=== PATIENT | female | born 1980 | race Caucasian/White ===

== ENCOUNTER 2017-05-21 14:51 | Emergency (ER) | payer BC ==
[~2017-05-21] VITALS: Ht 149.9 cm; Wt 60.1 kg
[~2017-05-21 14:51] MED LIST: IBUP80TA PO; PERCOCET PO; VITAPRTA PO
[2017-05-21 15:27] LABS: BASO % 0.3 % (0.0-1.0); EOS # 0.2 K/mm3 (0.0-0.50); EOS % 2.4 % (0.0-3.0); LARGE UNSTAINED CELL # 0.1 K/mm3 (0.0-0.4); LARGE UNSTAINED CELL % 1.3 % (0.0-4.0); LYMPH # 1.9 K/mm3 (1.5-4.5); MEAN CORPUSCULAR HGB CONC 34.3 g/dl (32.0-36.5); MEAN CORPUSCULAR VOLUME 87.3 fl (80.0-96.0); MONO # 0.7 K/mm3 (0.0-0.8); MONO % 6.7 % (0.0-5.0); NEUTROPHILS % 71.3 % (36.0-66.0); PLATELET COUNT, AUTOMATED 345 k/mm3 (150-450); RED CELL DISTRIBUTION WIDTH 12.9 % (11.5-14.5); WHITE BLOOD COUNT 9.8 K/mm3 (4.0-10.0)
[2017-05-21 16:04] LABS: ALBUMIN/GLOBULIN RATIO 1.05 (1.00-1.93); ALKALINE PHOSPHATASE 59 U/L (45-117); ALT/SGPT 17 U/L (12-78); ANION GAP 6 MEQ/L (8-16); AST/SGOT 13 U/L (15-37); BILIRUBIN,DIRECT < 0.1 MG/DL (0.0-0.2); BILIRUBIN,TOTAL 0.3 MG/DL (0.2-1.0); BLOOD UREA NITROGEN 10 MG/DL (7-18); CALCIUM LEVEL 8.9 MG/DL (8.5-10.1); CARBON DIOXIDE LEVEL 29 MEQ/L (21-32); CHLORIDE LEVEL 106 MEQ/L (98-107); CREATININE FOR GFR 0.75 MG/DL (0.55-1.02); FREE T4 0.92 NG/DL (0.76-1.46); GLOMERULAR FILTRATION RATE > 60.0 (>60); GLUCOSE, FASTING 115 MG/DL (70-105); POTASSIUM SERUM 3.3 MEQ/L (3.5-5.1); SODIUM LEVEL 141 MEQ/L (136-145); TOTAL PROTEIN 7.8 GM/DL (6.4-8.2)
--- NOTE | 2017-05-21 16:30 | REP ---
Chest pain. PRIORS: None. FINDINGS: The technique utilized in obtaining the radiograph has magnified the cardiac silhouette and accentuated the interstitial markings. The superior mediastinal structures are midline. The cardiac silhouette is unremarkable in size, shape, and position. The diaphragmatic surfaces of the lungs are regular, and the costophrenic angles are clear. The pulmonary byrne are clear. The imaged osseous structures are intact. IMPRESSION: There is no acute cardiopulmonary disease. Signed by Samuel Navarro DO 05/21/2017 04:53 P
[2017-05-21] MEDS ORDERED: POTASSIUM CHLORIDE 10 MEQ SR TABLET PO ONE (17:45)
[2017-05-21] MEDS ORDERED: ASPIRIN 325 MG TAB PO ONE (18:00)
[2017-05-21] MEDS ORDERED: ISOVUE-370 76% 100ML VIAL (Q9967) As Ordered ONE (19:11)
--- NOTE | 2017-05-21 20:00 | REPUSA ---
CT of the chest with contrast Clinical history: chest pain. Technique: Multiple axial CT images were obtained from the thoracic inlet through the upper abdomen a fter a bolus administration of nonionic intravenous contrast. Coronal and sagittal reconstructions we re also obtained. No comparison is available. The pulmonary arteries are well-opacified with contrast, with no intraluminal filling defects to sugg est embolism. The thoracic aorta is unremarkable. Thyroid gland is within normal limits. There is no thoracic lymphadenopathy. There are no pericardial or pleural effusions. The lungs are clear. Limited imaging of the upper abdomen is unremarkable. There are no suspicious osseous lesions. Impression: No evidence of pulmonary embolism. No acute intrapulmonary disease.
[2017-05-21 23:09] VITALS: BP 105/52
--- NOTE | 2017-05-22 05:59 | ECGEPIP ---
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
--- NOTE | 2017-05-22 07:42 | ECGEPIP ---
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
== END 2017-05-21 23:12 | disposition home or self-care (01) ==
LOC: M ED 16:49
DX: R07.9 Chest pain, unspecified (principal); Z82.49 Family history of ischemic heart disease and other diseases of the circulatory system
CPT/HCPCS: 36415; 71010; 71275; 80048; 80076; 82550; 82553; 84439; 84443; 85025; 93005; 93041; 94760; 99285; Q9967

== ENCOUNTER → 2017-07-28 | Outpatient (CLI) | payer BC ==
[2017-07-28 17:57] LABS: BASO % 0.4 % (0.0-1.0); EOS # 0.2 K/mm3 (0.0-0.50); EOS % 1.7 % (0.0-3.0); LARGE UNSTAINED CELL # 0.1 K/mm3 (0.0-0.4); LARGE UNSTAINED CELL % 1.2 % (0.0-4.0); LYMPH # 2.3 K/mm3 (1.5-4.5); LYMPH % 22.2 % (24.0-44.0); MEAN CORPUSCULAR HEMOGLOBIN 30.4 pg (27.0-33.0); MEAN CORPUSCULAR HGB CONC 34.2 g/dl (32.0-36.5); MEAN CORPUSCULAR VOLUME 88.9 fl (80.0-96.0); MONO # 0.6 K/mm3 (0.0-0.8); MONO % 6.2 % (0.0-5.0); NEUTROPHILS # 6.8 K/mm3 (1.8-7.7); NEUTROPHILS % 68.3 % (36.0-66.0); PLATELET COUNT, AUTOMATED 325 k/mm3 (150-450); RED CELL DISTRIBUTION WIDTH 12.6 % (11.5-14.5); WHITE BLOOD COUNT 9.9 K/mm3 (4.0-10.0)
[2017-07-30 12:53] LABS: HBsAg Prenatal NEGATIVE (NEGATIVE)
== END ==
LOC: M SMT 13:16
PROVIDERS: ATTEND Advanced Practice Midwife
DX: Z34.81 Encounter for supervision of other normal pregnancy, first trimester (principal); Z36 Encounter for antenatal screening of mother; Z3A.00 Weeks of gestation of pregnancy not specified

== ENCOUNTER → 2017-09-13 | Outpatient (REF) | payer BC | LOC: M SFHCCLAY 15:32 | PROVIDERS: ATTEND Family Medicine | DX: D22.5 Melanocytic nevi of trunk (principal) ==

== ENCOUNTER → 2017-12-13 | Outpatient (CLI) | payer OTHER ==
[2017-12-13 13:58] LABS: BASO % 0.3 % (0.0-1.0); EOS # 0.3 10^3/uL (0.0-0.50); EOS % 3.4 % (0.0-3.0); HEMATOCRIT 31.3 % (36.0-47.0); HEMOGLOBIN 10.3 g/dl (12.0-16.0); IMMATURE GRANULOCYTE # 0.1 10^3/uL (0-0); IMMATURE GRANULOCYTE % 0.8 % (0-0); LYMPH % 20.5 % (24.0-44.0); MEAN CORPUSCULAR HEMOGLOBIN 29.5 pg (27.0-33.0); MEAN CORPUSCULAR HGB CONC 32.9 g/dl (32.0-36.5); MEAN CORPUSCULAR VOLUME 89.7 fl (80.0-96.0); MONO # 0.8 10^3/uL (0.0-0.8); NEUTROPHILS # 6.4 10^3/uL (1.8-7.7); PLATELET COUNT, AUTOMATED 309 10^3/uL (150-450); RED BLOOD COUNT 3.49 10^6/uL (4.00-5.40); WHITE BLOOD COUNT 9.5 10^3/uL (4.0-10.0)
[2017-12-13 14:18] LABS: GLUCOSE CHALLENGE TEST 1 HOUR 95 MG/DL (LESS THAN 140)
== END ==
LOC: M SMT 10:33
DX: Z34.83 Encounter for supervision of other normal pregnancy, third trimester (principal)
CPT/HCPCS: 82950

== ENCOUNTER → 2018-02-01 | Outpatient (REF) | payer BC, OTHER ==
[2018-02-01 21:23] LABS: GC DNA AMPLIFICATION NEGATIVE (NEGATIVE)
[2018-02-02 07:05] LABS: CHLAMYDIA DNA AMPLIFICATION NEGATIVE (NEGATIVE)
== END ==
LOC: M LAB REF 16:57
DX: Z34.83 Encounter for supervision of other normal pregnancy, third trimester (principal)
CPT/HCPCS: 87086

== ENCOUNTER → 2018-02-21 | Outpatient (REF) | payer OTHER | LOC: M LAB REF 17:17 | DX: Z34.83 Encounter for supervision of other normal pregnancy, third trimester (principal); Z36.85 Encounter for antenatal screening for Streptococcus B | CPT/HCPCS: 87081 ==

== ENCOUNTER → 2018-02-22 | Outpatient (REF) | payer OTHER | LOC: M LAB REF 18:03 | DX: D48.5 Neoplasm of uncertain behavior of skin (principal) ==

== ENCOUNTER 2018-03-16 20:00 | Inpatient (IN) | payer OTHER ==
[2018-03-16 21:02] LABS: HEMATOCRIT 29.6 % (36.0-47.0); HEMOGLOBIN 9.8 g/dl (12.0-15.5); MEAN CORPUSCULAR HEMOGLOBIN 28.2 pg (27.0-33.0); MEAN CORPUSCULAR HGB CONC 33.1 g/dl (32.0-36.5); MEAN CORPUSCULAR VOLUME 85.3 fl (80.0-96.0); PLATELET COUNT, AUTOMATED 291 10^3/uL (150-450); RED BLOOD COUNT 3.47 10^6/uL (4.00-5.40); RED CELL DISTRIBUTION WIDTH 13.7 % (11.5-14.5); WHITE BLOOD COUNT 12.8 10^3/uL (4.0-10.0)
[2018-03-16 21:33] LABS: AMPHETAMINES URINE REFLEX NEGATIVE (NEGATIVE); BARBITURATES URINE REFLEX NEGATIVE (NEGATIVE); BENZODIAZEPINES URINE REFLEX NEGATIVE (NEGATIVE); CANNABINOIDS URINE REFLEX NEGATIVE (NEGATIVE); COCAINE METABOLITE URINE REFLE NEGATIVE (NEGATIVE); METHADONE URINE REFLEX NEGATIVE (NEGATIVE); OPIATES URINE REFLEX NEGATIVE (NEGATIVE); PHENCYCLIDINE URINE REFLEX NEGATIVE (NEGATIVE)
[2018-03-17] MEDS: LR 1,000 ML IV (01:13)
[2018-03-17] MEDS ORDERED: OXYTOCIN DRIP 30 UNITS in APPROPRIATE DILUENT 1 EA IV (01:15)
[2018-03-17] MEDS ORDERED: FENTANYL 2MCG/ML ROPIVACAINE 0.2% IN 0.9% NACL 200ML IVBAG As Ordered (02:39)
[2018-03-17] MEDS ORDERED: EPIDURAL COMMENT XX (03:15)
[2018-03-17] MEDS ORDERED: ONDANSETRON 4MG/2ML VIAL (J2405) IV ×2 (03:15→07:15)
[2018-03-17] MEDS ORDERED: LACTATED RINGER'S 1000 ML IV (03:15)
[2018-03-17] MEDS ORDERED: EPIDURAL/PCA KEYS XX (03:15)
[2018-03-17] MEDS ORDERED: NALOXONE INJ 0.4 MG/1 ML VIAL (J2310) IV (03:15)
[2018-03-17] MEDS ORDERED: REFRIGERATOR IV KEYS XX (03:15)
[2018-03-17] MEDS ORDERED: FENTANYL/ROPIVACAINE/NACL BAG 200 ML EPIDURAL (03:15)
[2018-03-17] MEDS ORDERED: ePHEDrine SULFATE 25 MG/5 ML(5MG/ML) SYRINGE IV (03:15)
[2018-03-17] MEDS ORDERED: diphenhydrAMINE INJ 50MG/ML VIAL (J1200) IV (03:15)
[2018-03-17] MEDS ORDERED: DOCUSATE SODIUM 100 MG CAP PO (07:15)
[2018-03-17] MEDS ORDERED: METHYLERGONOVINE MALEATE 0.2 MG TAB PO (07:15)
[2018-03-17] MEDS ORDERED: DIBUCAINE 1% OINTMENT 30GM TOP (07:15)
[2018-03-17] MEDS: OXYTOCIN DRIP 30 UNITS in APPROPRIATE DILUENT 1 EA IV (07:15)
[2018-03-17] MEDS: PRENATAL VITAMINS CHEWABLE TABLET PO (10:10)
[2018-03-17] MEDS: IBUPROFEN 800 MG TAB PO ×2 (10:11→19:16)
[2018-03-17] MEDS: MEASLES,MUMPS,RUBELLA VACCINE INJ (MMR-II) (90707) SC (10:53)
[2018-03-17] MEDS: RHOGAM 300 MCG (1500 IU) INJ (J2790) IM (10:53)
[2018-03-17] MEDS: ACETAMINOPHEN 500 MG TAB PO (14:16)
[2018-03-18] MEDS: IBUPROFEN 800 MG TAB PO (04:40)
[2018-03-18] MEDS: PRENATAL VITAMINS CHEWABLE TABLET PO (08:23)
[2018-03-18] MEDS: ACETAMINOPHEN 500 MG TAB PO (08:24)
== END 2018-03-18 14:40 | disposition home or self-care (01) | DRG 560 ==
LOC: M LDO 20:00 → M LDI 20:42 → M OBS 03-17 09:38
PROVIDERS: Specialist
PROC: 10E0XZZ Delivery of Products of Conception, External Approach (ICD-10-PCS; principal; 2018-03-17)
DX: O69.1XX0 Labor and delivery complicated by cord around neck, with compression, not applicable or unspecified (principal); Z37.0 Single live birth; Z3A.39 39 weeks gestation of pregnancy

== ENCOUNTER 2018-06-06 05:39 | Day surgery (SDC) | payer OTHER, SELFPAY ==
[2018-06-06] MEDS ORDERED: LIDOCAINE 1% MDV 20ML VIAL SQ ×3 (06:00)
[2018-06-06 06:07] LABS: HEMATOCRIT 34.9 % (36.0-47.0); HEMOGLOBIN 11.2 g/dl (12.0-15.5); MEAN CORPUSCULAR HEMOGLOBIN 28.4 pg (27.0-33.0); MEAN CORPUSCULAR HGB CONC 32.1 g/dl (32.0-36.5); MEAN CORPUSCULAR VOLUME 88.6 fl (80.0-96.0); PLATELET COUNT, AUTOMATED 287 10^3/uL (150-450); RED BLOOD COUNT 3.94 10^6/uL (4.00-5.40); RED CELL DISTRIBUTION WIDTH 14.7 % (11.5-14.5); WHITE BLOOD COUNT 7.2 10^3/uL (4.0-10.0)
[2018-06-06] MEDS ORDERED: BUPIVACAINE HCL 0.25% 30 ML VIAL As Ordered ×3 (06:40)
[2018-06-06] MEDS: LR 1,000 ML IV ×3 (07:11)
[2018-06-06 07:15] LABS: CONTROL LINE UCG INT CTR LINE PRESENT; URINE PREG TEST NEGATIVE (NEGATIVE)
[2018-06-06] MEDS ORDERED: METOCLOPRAMIDE INJ 10MG/2ML VIAL (J2765) As Ordered ×3 (07:50)
[2018-06-06] MEDS ORDERED: fentaNYL 250 MCG/5 ML INJECTION (J3010) As Ordered ×3 (07:50)
[2018-06-06] MEDS ORDERED: LIDOCAINE 2% INJ 100 MG/5 ML SDV (FOR ANES.) As Ordered ×3 (07:50)
[2018-06-06] MEDS ORDERED: dexameTHASONE 4 MG/ML 1ML VIAL (J1100) As Ordered ×3 (07:50)
[2018-06-06] MEDS ORDERED: ROCURONIUM BROMIDE 50 MG/5 ML VIAL As Ordered ×3 (07:50)
[2018-06-06] MEDS ORDERED: NEOSTIGMINE 10 MG/10 ML VIAL (J2710) As Ordered ×3 (07:50)
[2018-06-06] MEDS ORDERED: PROPOFOL 200 MG/20 ML VIAL As Ordered ×3 (07:50)
[2018-06-06] MEDS ORDERED: GLYCOPYRROLATE INJ 0.2 MG/ML 2 ML VIAL As Ordered ×6 (07:50)
[2018-06-06] MEDS ORDERED: MIDAZOLAM INJ 2 MG/2 ML VIAL (J2250) As Ordered ×3 (07:50)
[2018-06-06] MEDS ORDERED: ONDANSETRON 4MG/2ML VIAL (J2405) As Ordered ×6 (07:50→10:39)
[2018-06-06] MEDS ORDERED: KETOROLAC 60 MG/2 ML VIAL (J1885) As Ordered ×3 (07:51)
[2018-06-06] MEDS: fentaNYL 100 MCG/2 ML INJECTION (J3010) IV ×12 (08:30→08:45)
[2018-06-06] MEDS ORDERED: fentaNYL 100 MCG/2 ML INJECTION (J3010) As Ordered ×3 (08:31)
[2018-06-06] MEDS ORDERED: PERCOCET 5MG/325MG TAB PO ×6 (08:45)
[2018-06-06] MEDS ORDERED: LR 1,000 ML IV ×6 (08:45)
[2018-06-06] MEDS ORDERED: MORPHINE 10 MG/ML 1ML VIAL (J2270) As Ordered ×3 (08:49)
[2018-06-06] MEDS: MORPHINE 10 MG/ML 1ML VIAL (J2270) IV ×15 (08:50→09:20)
[2018-06-06] MEDS ORDERED: MEPERIDINE INJ 25 MG/ML VIAL (J2175) As Ordered ×3 (09:03)
[2018-06-06] MEDS: MEPERIDINE INJ 25 MG/ML VIAL (J2175) IV ×6 (09:05→09:10)
[2018-06-06] MEDS: ONDANSETRON 4MG/2ML VIAL (J2405) IV ×3 (10:44)
== END 2018-06-06 12:23 | disposition home or self-care (01) ==
LOC: M SDC 05:39
DX: Z30.2 Encounter for sterilization (principal); Z79.899 Other long term (current) drug therapy; D64.9 Anemia, unspecified
CPT/HCPCS: 58671

== ENCOUNTER → 2018-06-08 | Outpatient (REF) | payer OTHER | LOC: M LAB REF 11:33 | DX: R30.0 Dysuria (principal) | CPT/HCPCS: 87086 ==

== ENCOUNTER → 2018-11-15 | Outpatient (REF) | payer OTHER ==
[~2018-11-15] MED LIST changes: +IBUP-1114 PO; +MAPA500T17 PO; +OXYC1TAB23 PO; +PRENTAB9 PO
[2018-11-15 17:23] LABS: BASO % 0.3 % (0.0-1.0); EOS # 0.4 10^3/uL (0.0-0.50); HEMATOCRIT 37.8 % (36.0-47.0); HEMOGLOBIN 12.2 g/dl (12.0-15.5); LYMPH # 2.8 10^3/uL (1.5-4.5); MEAN CORPUSCULAR HGB CONC 32.3 g/dl (32.0-36.5); MEAN CORPUSCULAR VOLUME 89.8 fl (80.0-96.0); MONO # 0.9 10^3/uL (0.0-0.8); MONO % 9.8 % (0.0-5.0); NEUTROPHILS # 4.8 10^3/uL (1.8-7.7); NEUTROPHILS % 54.1 % (36.0-66.0); PLATELET COUNT, AUTOMATED 365 10^3/uL (150-450); RED BLOOD COUNT 4.21 10^6/uL (4.00-5.40); WHITE BLOOD COUNT 8.9 10^3/uL (4.0-10.0)
[2018-11-15 17:53] LABS: FOLATE 9.5 NG/ML
== END ==
LOC: M SFHCCLAY 13:24
PROVIDERS: ATTEND Family Medicine
DX: G25.81 Restless legs syndrome (principal); R20.0 Anesthesia of skin

== ENCOUNTER → 2019-02-22 | Outpatient (CLI) | payer OTHER ==
[~2019-02-22] MED LIST changes: -MAPA500T17 PO; +MAPA500T2 PO
--- NOTE | 2019-02-22 14:33 | REP ---
Clinical: Pelvic pain. Technique: Transabdominal pelvic ultrasound followed by transvaginal examination for better evaluation of the endometrium and adnexa with color Doppler evaluation of the ovaries. Comparison: 04/13/2013 Findings: Heterogeneous anteverted uterus measures 9.0 x 4.6 x 5.3 cm. Posterior intramural lower uterine fibroid measures 2.7 x 2.4 x 2.5 cm (increased from 1.7 cm maximal diameter). Endometrial complex measures 7.6 mm thickness. Subcentimeter Nabothian cysts are identified. No further uterine or endometrial abnormality noted. Bilateral ovaries are normal in vascularity without torsion. Right ovary measures 3.5 x 1.8 x 2.4 cm (RI 0.55) and appears normal. Left ovary measures 4.1 x 2.3 x 3.0 cm (RI 0.46) and includes 2.3 cm involuting physiologic cyst and sub centimeter echogenic lesion which may represent complex hemorrhagic cyst or dermoid. Bladder is normal in appearance and measures 8.7 x 5.7 x 1.5 cm. Impression: 1. Heterogeneous uterus with 2.7 cm lower uterine segment fibroid. 2. Changes related to the left ovary likely physiologic. Consider reevaluation in 4-6 weeks to evaluate for resolution. Electronically Signed by Maik Herzog MD 02/22/2019 02:25 P
== END ==
LOC: M RAD 08:56
PROVIDERS: ATTEND Specialist
DX: D25.9 Leiomyoma of uterus, unspecified (principal); N88.8 Other specified noninflammatory disorders of cervix uteri

== ENCOUNTER → 2019-03-30 | Outpatient (CLI) | payer OTHER ==
[2019-03-30 13:50] LABS: BASO % 0.6 % (0.0-1.0); EOS # 0.2 10^3/uL (0.0-0.50); EOS % 3.5 % (0.0-3.0); HEMATOCRIT 39.7 % (36.0-47.0); HEMOGLOBIN 12.7 g/dl (12.0-15.5); LYMPH % 29.9 % (24.0-44.0); MEAN CORPUSCULAR HEMOGLOBIN 28.5 pg (27.0-33.0); MEAN CORPUSCULAR VOLUME 89.2 fl (80.0-96.0); MONO # 0.7 10^3/uL (0.0-0.8); MONO % 10.6 % (0.0-5.0); NEUTROPHILS # 3.8 10^3/uL (1.8-7.7); PLATELET COUNT, AUTOMATED 326 10^3/uL (150-450); RED BLOOD COUNT 4.45 10^6/uL (4.00-5.40); WHITE BLOOD COUNT 6.8 10^3/uL (4.0-10.0)
[2019-03-30 13:58] LABS: ALBUMIN 4.1 GM/DL (3.2-5.2); ALT/SGPT 12 U/L (12-78); BILIRUBIN,TOTAL 0.5 MG/DL (0.2-1.0); BLOOD UREA NITROGEN 14 MG/DL (7-18); CALCIUM LEVEL 8.8 MG/DL (8.5-10.1); CARBON DIOXIDE LEVEL 28 MEQ/L (21-32); CHLORIDE LEVEL 107 MEQ/L (98-107); CHOLESTEROL LEVEL 192 MG/DL (<200); CHOLESTEROL RISK RATIO 3.254 (<5); CREATININE FOR GFR 0.62 MG/DL (0.55-1.30); GLOMERULAR FILTRATION RATE > 60.0 (>60); GLUCOSE, FASTING 85 MG/DL (70-100); HDL CHOLESTEROL 59 MG/DL (>40); LDL CHOLESTEROL 121 MG/DL (<100); NON-HDL-C 133 MG/DL; POTASSIUM SERUM 4.7 MEQ/L (3.5-5.1); SODIUM LEVEL 137 MEQ/L (136-145); TOTAL PROTEIN 7.4 GM/DL (6.4-8.2); TRIGLYCERIDES LEVEL 58 MG/DL (<150)
== END ==
LOC: M SMT 08:26
PROVIDERS: ATTEND Family Medicine
DX: Z13.1 Encounter for screening for diabetes mellitus (principal); Z13.220 Encounter for screening for lipoid disorders; R53.83 Other fatigue; F41.9 Anxiety disorder, unspecified; R00.2 Palpitations; Z82.49 Family history of ischemic heart disease and other diseases of the circulatory system; Z83.3 Family history of diabetes mellitus

== ENCOUNTER → 2021-05-13 | Outpatient (REF) | payer OTHER ==
[2021-05-13 17:53] LABS: ESTRADIOL 44.8 PG/ML; FOLLICLE STIMULATING HORMONE 7.2 mIU/mL; LUTEINIZING HORMONE 6.5 mIU/mL; THYROID STIMULATING HORMONE 2.25 uIU/ML (0.358-3.740)
[2021-05-13 18:06] LABS: HEMATOCRIT 38.6 % (36.0-47.0); HEMOGLOBIN 12.2 g/dl (12.0-15.5); MEAN CORPUSCULAR HEMOGLOBIN 28.9 pg (27.0-33.0); MEAN CORPUSCULAR HGB CONC 31.6 g/dl (32.0-36.5); MEAN CORPUSCULAR VOLUME 91.5 fl (80.0-96.0); PLATELET COUNT, AUTOMATED 352 10^3/uL (150-450); RED BLOOD COUNT 4.22 10^6/uL (4.00-5.40); WHITE BLOOD COUNT 7.5 10^3/uL (4.0-10.0)
== END ==
LOC: M PLALAB 15:03
PROVIDERS: ATTEND Advanced Practice Midwife
DX: N92.0 Excessive and frequent menstruation with regular cycle (principal)

== ENCOUNTER → 2021-05-13 | Outpatient (REF) | payer OTHER | LOC: M SFHCWAGY 17:26 | PROVIDERS: ATTEND Advanced Practice Midwife | DX: Z12.4 Encounter for screening for malignant neoplasm of cervix (principal) ==

== ENCOUNTER → 2021-05-20 | Outpatient (REF) | payer OTHER | LOC: M SFHCWAGY 13:27 | PROVIDERS: ATTEND Advanced Practice Midwife | DX: N92.4 Excessive bleeding in the premenopausal period (principal) ==

== ENCOUNTER → 2022-01-29 | Outpatient (REF) | payer OTHER ==
[2022-01-29 12:55] LABS: CHOLESTEROL RISK RATIO 2.927 (<5)
[2022-01-29 13:17] LABS: HEMOGLOBIN A1c 5.2 %
[2022-01-30 07:08] LABS: RUBELLA IgG FOR TORCH EVAL <0.90 index (Immune >0.99); RUBEOLA IgG ANTIBODY 28.2 AU/mL (Immune >16.4)
== END ==
LOC: M SFHCCLAY 08:41
PROVIDERS: ATTEND Family Medicine
DX: Z13.220 Encounter for screening for lipoid disorders (principal); Z82.49 Family history of ischemic heart disease and other diseases of the circulatory system; Z13.1 Encounter for screening for diabetes mellitus; Z83.3 Family history of diabetes mellitus; Z02.1 Encounter for pre-employment examination; Z11.1 Encounter for screening for respiratory tuberculosis

== ENCOUNTER → 2022-08-24 | Outpatient (CLI) | payer OTHER | LOC: M WHC 14:32 | PROVIDERS: ATTEND Specialist | DX: N92.0 Excessive and frequent menstruation with regular cycle (principal) ==

== ENCOUNTER → 2022-10-26 | Outpatient (CLI) | payer OTHER ==
[~2022-10-26] MED LIST changes: +HYDR-643 PO; +VITMTA PO
== END ==
LOC: M LABSMTC 10:45
PROVIDERS: ATTEND Anesthesiology
DX: Z01.812 Encounter for preprocedural laboratory examination (principal); Z11.52 Encounter for screening for COVID-19

== ENCOUNTER 2022-10-30 09:37 | Day surgery (SDC) | payer OTHER ==
[~2022-10-30] VITALS: Ht 149.9 cm; Wt 54.4 kg
[~2022-10-30 09:37] MED LIST changes: +BUPIVACAINE HCL 0.25% 10ML VIAL As Ordered ONE; +LR 1,000 ML IV SCH; +ceFAZolin SOD 2 GM in IV 1 EA IV ONE
[2022-10-30] MEDS ORDERED: LR 1,000 ML IV SCH ×3 (10:15→14:40)
[2022-10-30 10:21] LABS: HEMATOCRIT 33.6 % (36.0-47.0); HEMOGLOBIN 11.1 g/dl (12.0-15.5); MEAN CORPUSCULAR HEMOGLOBIN 29.6 pg (27.0-33.0); MEAN CORPUSCULAR VOLUME 89.6 fl (80.0-96.0); PLATELET COUNT, AUTOMATED 306 10^3/uL (150-450); RED BLOOD COUNT 3.75 10^6/uL (4.00-5.40); WHITE BLOOD COUNT 7.3 10^3/uL (4.0-10.0)
[2022-10-30] MEDS ORDERED: SCOPOLAMINE 1MG TRANSDERMAL PATCH TOP ONE (10:40)
[2022-10-30] MEDS ORDERED: ONDANSETRON 4MG 2ML VIAL As Ordered ONE (10:59)
[2022-10-30] MEDS ORDERED: MIDAZOLAM INJ 2MG/2ML VIAL (J2250 PER 1MG) As Ordered ONE (10:59)
[2022-10-30] MEDS ORDERED: LIDOCAINE 2% 100MG/5ML SDV (FOR ANES.) As Ordered ONE (10:59)
[2022-10-30] MEDS ORDERED: ROCURONIUM BROMIDE 50 MG/5 ML VIAL As Ordered ONE ×2 (10:59→12:54)
[2022-10-30] MEDS ORDERED: fentaNYL 250 MCG/5 ML INJECTION As Ordered ONE (10:59)
[2022-10-30] MEDS ORDERED: propofoL 200 MG/20 ML VIAL As Ordered ONE (10:59)
[2022-10-30] MEDS ORDERED: ePHEDrine SULFATE 25 MG/5 ML(5MG/ML) SYRINGE As Ordered ONE (12:36)
[2022-10-30] MEDS ORDERED: ACETAMINOPHEN 1000MG 100ML IV BAG As Ordered ONE (12:50)
[2022-10-30] MEDS ORDERED: GLYCOPYRROLATE INJ 0.2 MG/ML 2 ML VIAL As Ordered ONE (13:12)
[2022-10-30] MEDS ORDERED: ESMOLOL INJ 100MG/10ML VIAL As Ordered ONE (13:18)
[2022-10-30] MEDS ORDERED: SUGAMMADEX SODIUM 500 MG/5 ML VIAL (BRIDION) As Ordered ONE (13:21)
[2022-10-30] MEDS ORDERED: fentaNYL 100 MCG/2 ML INJECTION IV PRN (13:45)
[2022-10-30] MEDS ORDERED: ONDANSETRON 4MG 2ML VIAL IV PRN (13:45)
[2022-10-30] MEDS ORDERED: IBUP-1022 PO (14:03)
[2022-10-30] MEDS ORDERED: OXYC1TAB23 PO (14:04)
[2022-10-30] MEDS: HYDROMORPHONE HCL 0.5 MG/ 0.5 ML SYRINGE (J1170 PER 1) IV PRN ×4 (14:20→14:48)
[2022-10-30] MEDS: oxyCODONE 5MG TAB PO PRN ×2 (14:33→15:00)
[2022-10-30] MEDS ORDERED: PERCOCET 5MG/325MG TAB PO PRN (14:40)
[2022-10-30 15:45] VITALS: BP 113/59
== END 2022-10-30 16:00 | disposition home or self-care (01) ==
LOC: M SDC 09:37
PROVIDERS: ATTEND Specialist
DX: N92.6 Irregular menstruation, unspecified (principal); D25.9 Leiomyoma of uterus, unspecified; L40.9 Psoriasis, unspecified; F41.9 Anxiety disorder, unspecified; Z79.899 Other long term (current) drug therapy
CPT/HCPCS: 36415; 58571; 85027; 86850; 86900; 86901; 88307; J0131; J0690; J1100; J1170; J2250; J2405; J3010; S2900

== ENCOUNTER → 2022-11-11 | Outpatient (REF) | payer OTHER ==
[~2022-11-11] MED LIST changes: -BUPIVACAINE HCL 0.25% 10ML VIAL As Ordered ONE; +IBUP-1022 PO; -LR 1,000 ML IV SCH; -ceFAZolin SOD 2 GM in IV 1 EA IV ONE
[2022-11-11 19:35] LABS: APPEARANCE, URINE MANUAL CLEAR (CLEAR)
[2022-11-11 19:36] LABS: BILIRUBIN, URINE MANUAL NEGATIVE (NEGATIVE); BLOOD URINE MANUAL POSITIVE (NEGATIVE); COLOR, URINE MANUAL COLORLESS (YELLOW); GLUCOSE, URINE (UA) MANUAL NEGATIVE (NEGATIVE); KETONE, URINE MANUAL NEGATIVE (NEGATIVE); LEUKOCYTE ESTERASE, URINE MAN POSITIVE (NEGATIVE); NITRITE, URINE MANUAL NEGATIVE (NEGATIVE); PROTEIN, URINE MANUAL NEGATIVE (NEGATIVE); UROBILINOGEN, URINE MANUAL NORMAL (NORMAL)
[2022-11-11 19:46] LABS: BACTERIA, URINE SMALL AMOUNT; HYALINE CAST, URINE NONE SEEN /lpf (0-1); RBC, URINE NONE SEEN /hpf (0-3); SQUAMOUS EPITHELIAL CELL URINE SMALL AMOUNT /hpf (SMALL AMT); WBC, URINE 0-1 /hpf (0-3)
== END ==
LOC: M LAB REF 17:14
PROVIDERS: ATTEND Physician Assistant
DX: N39.0 Urinary tract infection, site not specified (principal)

== ENCOUNTER → 2024-10-12 | Outpatient (REF) | payer OTHER ==
[2024-10-12 17:20] LABS: HEMATOCRIT 40.7 % (36.0-47.0); HEMOGLOBIN 13.3 g/dl (12.0-15.5); MEAN CORPUSCULAR HEMOGLOBIN 29.7 pg (27.0-33.0); MEAN CORPUSCULAR HGB CONC 32.7 g/dl (32.0-36.5); MEAN CORPUSCULAR VOLUME 90.8 fl (80.0-96.0); PLATELET COUNT, AUTOMATED 329 10^3/uL (150-450); RED BLOOD COUNT 4.48 10^6/uL (4.00-5.40); WHITE BLOOD COUNT 7.4 10^3/uL (4.0-10.0)
[2024-10-12 17:22] LABS: ALBUMIN 4.1 G/DL (3.2-5.2); ALKALINE PHOSPHATASE 40 U/L (35-104); ALT/SGPT 12 U/L (7.0-40); AST/SGOT 9 U/L (<34); BILIRUBIN,TOTAL 0.7 MG/DL (0.3-1.2); BLOOD UREA NITROGEN 10 MG/DL (9-23); CALCIUM LEVEL 9.6 MG/DL (8.5-10.1); CARBON DIOXIDE LEVEL 28 MMOL/L (20-31); CHLORIDE LEVEL 107 MMOL/L (98-107); CHOLESTEROL LEVEL 201 MG/DL (<200); CHOLESTEROL RISK RATIO 3.24 (<5); CREATININE FOR GFR 0.61 MG/DL (0.55-1.30); GLOMERULAR FILTRATION RATE > 60.0 (>58); GLUCOSE, FASTING 87 MG/DL (60-100); HDL CHOLESTEROL 61.9 MG/DL (>40); LDL CHOLESTEROL 126.7 MG/DL (<100); NON-HDL-C 139.1 MG/DL; POTASSIUM SERUM 4.2 MMOL/L (3.5-5.1); SODIUM LEVEL 140 MMOL/L (136-145); TOTAL PROTEIN 7.7 G/DL (5.7-8.2); TRIGLYCERIDES LEVEL 62 MG/DL (<150)
[2024-10-12 18:14] LABS: HEMOGLOBIN A1c 5.1 % (4.0-6.0)
== END ==
LOC: M SFHCCLAY 09:50
PROVIDERS: ATTEND Physician Assistant
DX: Z00.00 Encounter for general adult medical examination without abnormal findings (principal); F41.9 Anxiety disorder, unspecified; J30.2 Other seasonal allergic rhinitis; Z12.31 Encounter for screening mammogram for malignant neoplasm of breast